=== PATIENT | male | born 1975 | race Caucasian/White ===

== ENCOUNTER 2020-02-12 10:08 | Emergency (ER) | payer OTHER ==
[~2020-02-12] VITALS: Ht 182.9 cm; Wt 136.1 kg
[~2020-02-12 10:08] MED LIST: ALBU90I INH; AZIT500 PO; CEPH500 PO; CIPR500 PO; CLIN300 PO; CYCL10 PO; DIAZ5 PO; FURO100EL; HYDACE10B; HYDACE10B PO; HYDACE5 PO; HYDACE5325 PO; HYDACE7.5 PO; HYDCHLSU PO; IBUP800 PO; MARIJUANA; NAPR500 PO; OFLO.3OTSO AU; PHENTERAMINE; PROM25 PO; RXHYD5325 PO; RXHYDACE PO; SPACER IH
[2020-02-12 11:03] LABS: BASOPHILS ABSOLUTE AUTO 0.05 K/mm3 (0.00-0.23); BASOPHILS PERCENT AUTO 1 % (0-2); EOSINOPHILS ABSOLUTE AUTO 0.09 K/mm3 (0.00-0.68); EOSINOPHILS PERCENT AUTO 2 % (0-6); Hematocrit 46.5 % (37.0-53.0); Hemoglobin 16.1 g/dL (13.5-17.5); IMMATURE GRAN ABSOLUTE AUTO 0.01 K/mm3 (0.00-0.10); IMMATURE GRAN PERCENT AUTO 0 % (0-1); LYMPHOCYTES ABSOLUTE AUTO 2.91 K/mm3 (0.84-5.20); LYMPHOCYTES PERCENT AUTO 50 % (21-46); MONOCYTES ABSOLUTE AUTO 0.53 K/mm3 (0.16-1.47); MONOCYTES PERCENT AUTO 9 % (4-13); Mean Corpuscular HGB 30.7 pg (26.0-34.0); Mean Corpuscular HGB Conc 34.6 g/dL (31.5-36.5); Mean Corpuscular Volume 89 fL (80-100); Mean Platelet Volume 9.7 fL (9.1-12.4); NEUTROPHILS ABSOLUTE AUTO 2.24 K/mm3 (1.96-9.15); NEUTROPHILS PERCENT AUTO 38 % (41-73); Platelet Count 279 K/mm3 (150-400); RDW Coefficient Variation 12.4 % (11.7-14.2); RDW Standard Deviation 40.5 fL (35.1-46.3); Red Blood Cell Count 5.24 M/mm3 (4.30-5.90); White Blood Cell Count 5.83 K/mm3 (4.00-11.30)
[2020-02-12 11:37] LABS: Alanine Aminotransfer (ALT/SGP 34 U/L (12-78); Albumin, Blood 3.8 g/dL (3.4-5.0); Alk Phos 86 U/L (50-136); Anion Gap 6 mmol/L (6-16); Aspartate Aminotrans (AST/SGOT 20 U/L (12-37); Bilirubin, Total 0.4 mg/dL (0.1-1.0); Blood Urea Nitrogen 12 mg/dL (8-24); Bun/Creatinine Ratio 11.2 (12.0-20.0); CO2, Blood 24 mmol/L (21-32); Calcium, Blood 8.8 mg/dL (8.5-10.1); Chloride, Blood 106 mmol/L (98-108); Creatinine, Blood 1.07 mg/dL (0.60-1.20); Globulin, Blood 3.9 g/dL (2.2-4.0); Glomerular Filtration Rate >60 (60-); Glucose, Blood 103 mg/dL (70-99); Potassium, Blood 3.7 mmol/L (3.5-5.5); Sodium, Blood 136 mmol/L (136-145); Total Protein, Blood 7.7 g/dL (6.4-8.2); Troponin I <0.015 ng/mL (0.000-0.040)
[2020-02-12] MEDS ORDERED: IBU800 MG PO (13:04)
[2020-02-12] MEDS ORDERED: Percocet 5-3251 EACH PO (13:04)
[2020-02-12] MEDS ORDERED: HYDR1TAB94 PO (13:08)
== END 2020-02-12 13:19 | disposition home or self-care (01) ==
LOC: ER 10:08
PROVIDERS: Physician Assistant
DX: S83.92XA Sprain of unspecified site of left knee, initial encounter (principal); R55 Syncope and collapse; F17.200 Nicotine dependence, unspecified, uncomplicated; Z88.0 Allergy status to penicillin; W19.XXXA Unspecified fall, initial encounter
CPT/HCPCS: 36415; 71046; 73564; 80053; 84484; 85025; 93005; 93010; 96374; 96375; 99284-25; J1170; J1885; J2405